=== PATIENT | male | born 1965 | race Caucasian/White ===

== ENCOUNTER 2019-12-13 14:23 | Outpatient (CLI) | payer BC, SELFPAY ==
[2019-12-13 14:38] LABS: Hemoglobin 16.8 g/dL (14.0-18.0); Mean Corpuscular HGB Conc 33.6 g/dL (32.0-36.0); Mean Corpuscular Hemoglobin 29.1 pg (27.0-31.0); Mean Corpuscular Volume 86.7 fL (78.0-102.0); Mean Platelet Volume 10.6 fl (8.7-11.0); Platelet Count Result 223 K/mm3 (150-420); Red Blood Count 5.77 M/mm3 (4.70-6.10); Red Cell Distribution Width 13.1 % (11.6-14.4)
[2019-12-13 14:48] LABS: Hemoglobin A1C 6.1 % (<5.7)
[2019-12-13 15:36] LABS: Alanine Aminotransferase 34 U/L (16-63); Albumin Level 4.1 g/dL (3.4-5.0); Alkaline Phosphatase 82 U/L (46-116); Anion Gap 9 mmol/L (8-16); Aspartate Amino Transferase 24 U/L (15-37); Bilirubin,Total 0.5 mg/dL (0.00-1.00); Blood Urea Nitrogen 18 mg/dL (7-18); Calcium 9.1 mg/dL (8.5-10.1); Carbon Dioxide 29 mmol/L (21-32); Chloride 103 mmol/L (98-108); Cholesterol 221 mg/dL (0-200); Estimated Glomerular Filt Rate > 60; Glucose 81 mg/dL (70-99); HDL Direct 32 mg/dL (40-60); LDL Cholesterol Calculated 136 mg/dL (<130); Osmolality Calculated 292 mOsm/kg (285-295); Potassium 4.3 mmol/L (3.5-5.1); Sodium 141 mmol/L (136-145); Total Protein 7.7 g/dL (6.4-8.2); Triglycerides 266 mg/dL (0-150)
== END 2019-12-13 14:24 | disposition home or self-care (01) ==
LOC: CHSLAB 14:26
PROVIDERS: PCP Family Medicine; Visit Provider Family Medicine
DX: R73.09 Other abnormal glucose (principal); I10 Essential (primary) hypertension
CPT/HCPCS: 36415; 80053; 80061; 83036; 85027

== ENCOUNTER 2020-07-06 18:17 | Emergency (ER) | payer BC, SELFPAY ==
--- NOTE | ~2020-07-06 | XR_ITS ---
XR knee RT 2V DATE: 07/06/2020 18:53 INDICATION: Posterior right knee pain, popping following twisting injury TECHNIQUE: AP and cross table lateral views COMPARISON: None FINDINGS: There is minimal periarticular spurring of the patella. No fracture or dislocation or join t effusion. No periosteal reaction or bone destruction. IMPRESSION: Minimal osteoarthritis Reviewed, dictated and finalized at location A. IMPRESSION: Minimal osteoarthritis
[2020-07-06 18:38] VITALS: BP 131/80; PULSE 81; RESP 16; TEMP 36.8; O2SAT 96
--- NOTE | 2020-07-06 19:10 | ED.LOWEXIN ---
HPI - Extremity Injury (Lower) General Chief Complaint: Extremity Injury, Lower Stated Complaint: R knee pain Source: patient and family Mode of arrival: ambulatory Limitations: no limitations History of Present Illness HPI Narrative: this is a 55-year-old gentleman that hyper extended and twisted his right knee and is having posterior knee pain with no inflammation has been going on for the last 2 weeks he injured it approximately 2 weeks ago in heard a popping sound and since then has had difficulty with weight-bearing has tried [id number] medication there is no swelling has limited range of motion secondary to play pain and inflammation with a good strong pedal pulse no swelling in the anterior knee. complaint: knee injury Onset (ago): week(s) Injury: Right: knee ( posterior tenderness) Type of Injury: eversion Place: home Severity: moderate Severity scale (1-10): 6 Relieving factors: NSAID Exacerbating factors: weight bearing Context: other ( twisted) Associated symptoms: snap/pop sensation and numbness Other symptoms: none Related Data Allergies Allergy/AdvReac Type Severity Reaction Status Date / Time No Known Allergies Allergy Verified 03/13/20 07:32 Review of Systems Review of Systems: All systems reviewed & are unremarkable except as noted in HPI and below PMFSH Past Medical History Medical History Overweight Tobacco smoker, 20 cigarettes or fewer per day Surgical History Surgical History History of carpal tunnel surgery of left wrist Family History Family History Father Diabetes mellitus Skin cancer Mother Fibromyalgia Social History Social History Smoking status: Former smoker Additional smoking assessment comments: Quit 2013. 15 pack-year history Additional living arrangements comments: . 3 Children. Additional occupation/education comments: [employer] Exam Const: General: no acute distress and alert Orientation/consciousness: patient oriented x3 HENMT: Head: normal to inspection Eyes: Conjunctivae: conjunctivae normal Pupils: Equal, round and reactive pupils present EOM: EOMs intact bilaterally Direct Ophthalmoscopy: no photophobia Neck: Neck: normal visual inspection, no lymphadenopathy and no meningeal signs Resp: Effort & Inspection: normal respiratory effort Auscultation: clear to auscultation bilaterally Cardio: Rate: regular rate Rhythm: regular rhythm GI: GI Palp: Yes Soft to palpation Back/Spine/Pelvis: Back: no CVA tenderness Skin: General skin exam: normal color Rashes: no rashes Neuro: General: patient oriented x3, moves all extremities and no meningeal signs Extrem: General: normal to inspection and no pedal edema Other: Has tenderness in posterior right knee with palpation otherwise has limited range of motion secondary to pain, there is no swelling no calf pain or tenderness no redness. Psych: Mental Status: mental status grossly normal Affect: normal affect Course Course Emergency Course: Advised patient that with such injury the will need possibly an MRI and will refer him to his primary care physician for further evaluation. X-ray during this visit was reviewed and showed no acute abnormalities. Vital Signs Vital signs: Vital Signs Temperature 36.8 C 07/06/20 18:38 Pulse Rate 81 07/06/20 18:38 Respiratory Rate 16 07/06/20 18:38 Blood Pressure 131/80 07/06/20 18:38 Pulse Oximetry 96 07/06/20 18:38 Temperature 36.8 C 07/06/20 18:38 Pulse Rate 81 07/06/20 18:38 Respiratory Rate 16 07/06/20 18:38 Blood Pressure 131/80 07/06/20 18:38 Pulse Oximetry 96 07/06/20 18:38 Critical Care Time Critical Care Time Critical Care Time: No Discharge Plan Discharge
== END 2020-07-06 19:20 | disposition home or self-care (01) ==
PROVIDERS: Emergency Provider Emergency Medicine; PCP Family Medicine
DX: S86.911A Strain of unspecified muscle(s) and tendon(s) at lower leg level, right leg, initial encounter (principal); F17.210 Nicotine dependence, cigarettes, uncomplicated
CPT/HCPCS: 73560; 99282; 99283

== ENCOUNTER 2020-07-08 10:11 | Outpatient (CLI) | payer BC, SELFPAY ==
--- NOTE | ~2020-07-08 | MR_ITS ---
EXAMINATION: MR knee RT wo con DATE: 07/08/2020 11:09 INDICATION: Right knee pain post fall down steps one month prior. TECHNIQUE: Magnetic resonance imaging (MRI) of the right knee was performed without intravenous contr ast. Sequences included coronal PD-weighted FSE, coronal PD-weighted FS FSE, sagittal T2-weighted FS E, sagittal PD-weighted FS FSE and axial PD weighted fat saturated FSE. COMPARISON: None. FINDINGS: Medial compartment: Full-thickness radial tear near the posterior root of the medial meniscus. Deep chondral fissure with out degenerative subchondral changes along the lateral margin of the anterior weightbearing medial fe moral condyle. Articular cartilage is otherwise normal. Lateral compartment: Lateral meniscus is normal. Articular cartilage is normal. Patellofemoral compartment: Deep chondral ulceration and fissuring at the cephalad half of the lateral patellar facet, apical rid ge and immediately adjacent medial facet. Small central subchondral osteophytes and small focus of silva barticular edema at the apical ridge and medial facet. Deep chondral fissure at the central aspect of the lateral trochlea. And at the inferolateral aspect of the medial trochlea. Ligaments and tendons: Anterior and posterior cruciate ligaments are normal. The medial collateral ligament and fibular mayi ateral ligament complex are normal. Mild tendinopathy at the medial aspect of the distal quadriceps t endon. Patellar tendon is normal. The visualized medial and lateral hamstring tendons as well as the iliotibial band are normal. Fluid: Small right knee joint effusion. No loose osteochondral bodies identified. Small Montes's cyst with ad ditional small deeper component extending cephalad along the anterior margin of the semimembranosus t endon. Mild prepatellar edema without discrete bursal fluid collection. Osseous/other: Normal marrow signal secondary previous noted is tiny focus of subarticular edema at the patellar api raul ridge. No fracture or pathologic marrow replacing process. IMPRESSION: 1. Full-thickness radial tear near the posterior root of the medial meniscus. 2. 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 3. Signal small deep chondral fissure along the anterior weightbearing medial femoral condyle. 4. Mild distal quadriceps tendinopathy. 5. Small right knee joint effusion and small Montes's cyst. Reviewed, dictated and finalized at location A. IMPRESSION: 1. Full-thickness radial tear near the posterior root of the medial meniscus. 2. 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 3. Signal small deep chondral fissure along the anterior weightbearing medial f emoral condyle. 4. Mild distal quadriceps tendinopathy. 5. Small right knee joint effusion and small Montes's cyst.
== END 2020-07-08 10:12 | disposition home or self-care (01) ==
LOC: CHSIMG 10:13
PROVIDERS: PCP Family Medicine; Visit Provider Family Medicine
DX: S86.911D Strain of unspecified muscle(s) and tendon(s) at lower leg level, right leg, subsequent encounter (principal)
CPT/HCPCS: 73721

== ENCOUNTER 2020-10-30 15:16 | Outpatient (CLI) | payer BC, SELFPAY ==
--- NOTE | ~2020-10-30 | XR_ITS ---
XR chest 2V DATE: 10/30/2020 15:38 INDICATION: Worsening productive cough for one week TECHNIQUE: PA and lateral views COMPARISON: None FINDINGS: There are patchy infiltrates scattered throughout both lungs, particularly in the mid and l ower lung zones, most consistent with bilateral pneumonia. Normal heart size. No pleural effusion or pulmonary vascular congestion or pneumothorax. IMPRESSION: Patchy bilateral pulmonary infiltrates suggestive of pneumonia Reviewed, dictated and finalized at location B.
== END 2020-10-30 15:17 | disposition home or self-care (01) ==
LOC: CHSIMG 15:19
PROVIDERS: PCP Nurse Practitioner Family; Visit Provider Nurse Practitioner Family
DX: R79.81 Abnormal blood-gas level (principal); U07.1 COVID-19
CPT/HCPCS: 71046

== ENCOUNTER 2020-11-03 10:46 | Inpatient (IN) | payer BC, SELFPAY ==
[2020-11-03] VITALS (10 sets, daily range): BP systolic 104–133; BP diastolic 64–89; PULSE 60–87; RESP 12–28; TEMP 35.9–36.3; O2SAT 87–100; BMI 34.7
--- NOTE | ~2020-11-03 | CT_ITS ---
EXAMINATION: CTA chest PE protocol DATE: 11/03/2020 12:52 INDICATION: Shortness of breath. TECHNIQUE: Computed tomography angiography (CTA) of the chest was performed with 100 mL Omnipaque-350 intravenous contrast timed to evaluate the pulmonary arteries. Coronal maximum intensity projection 3D-reconstructions were created by the technologist. Automated exposure control and iterative reconst ruction technique were employed. The dose-length product was 852.02 mGy-cm. COMPARISON: CT abdomen and pelvis 02/22/2017 FINDINGS: There are patchy groundglass and airspace opacities with areas of septal thickening through out the lungs bilaterally. No pleural effusion. There is an 11 mm subcutaneous mass in right superior posterior thorax, likely a sebaceous cyst. The heart size is normal. There are coronary artery calci fications. No pericardial effusion. There is no pulmonary embolus. There is mild mediastinal and bila teral hilar lymphadenopathy. There is a small sliding hiatal hernia. There is mild thoracic spondylos is. IMPRESSION: 1. No pulmonary embolus. Sensitivity is mildly decreased by motion artifact. 2. Diffuse lung disease, consistent with COVID-19 pneumonia. 3. Mild mediastinal and bilateral hilar lymphadenopathy, likely reactive. Reviewed, dictated and finalized at location A.
--- NOTE | ~2020-11-03 | XR_ITS ---
EXAMINATION: XR chest 1V portable INDICATION: Shortness of breath, COVID 19 TECHNIQUE: Portable AP chest at 0951 hours COMPARISON: 11/03/2020 FINDINGS: There are diffuse opacities throughout all lung zones with interval worsening. No pleural e ffusion or pneumothorax is identified. The cardiomediastinal silhouette is normal. IMPRESSION: 1. Diffuse lung disease with interval worsening, consistent with pneumonia and/or pulmonary edema and /or acute respiratory distress syndrome (ARDS). Reviewed, dictated and finalized at location B. IMPRESSION: 1. Diffuse lung disease with interval worsening, consistent with pneumonia and/ or pulmonary edema and/or acute respiratory distress syndrome (ARDS).
--- NOTE | ~2020-11-03 | XR_ITS ---
XR chest 1V portable DATE: 11/03/2020 11:49 INDICATION: Shortness of breath. Covid-positive patient. TECHNIQUE: Portable AP chest on 11/03/2020 at 1159 hours COMPARISON: 10/30/2020 PA and lateral chest FINDINGS: There is increased patchy bilateral mid and lower lung infiltrates since 10/30/2020, likely due to extensive bilateral pneumonia. Heart size appears borderline. No pleural effusion or pneumothorax. IMPRESSION: Increased bilateral infiltrates in the mid and lower lung zones since 10/30 Reviewed, dictated and finalized at location B. IMPRESSION: Increased bilateral infiltrates in the mid and lower lung zones sin 10/30
--- NOTE | 2020-11-03 10:56 | ED.URI ---
HPI - URI/Sore Throat General Chief Complaint: Shortness of Breath/Dyspnea Stated Complaint: SOB/low oxygen Time Seen by Provider: 11/03/20 10:57 Source: patient Mode of arrival: ambulatory Limitations: no limitations History of Present Illness HPI Narrative: Patient comes in with complaints of shortness of breath moderately severe, ongoing for the past two days. He has had difficulty breathing when laying down, for two days. He was recently diagnosed with Covid pneumonia. He complains of feeling lightheaded and presyncopal at home. Nothinghas helped him feel better at home. MD elicited complaint: cough Pertinent past history: pneumonia and other (covid ) Onset (ago): day(s) Consistency: intermittent Severity: moderate Exacerbating factors: exertion Relieving factors: rest Context: sick contacts Associated symptoms: fever, headache and shortness of breath Treatments prior to arrival: acetaminophen Related Data Home Medications Medication Instructions Recorded Confirmed doxycycline monohydrate 100 mg 100 mg PO BID cap 11/01/20 11/03/20 capsule Allergies Allergy/AdvReac Type Severity Reaction Status Date / Time No Known Allergies Allergy Verified 11/01/20 08:24 Review of Systems Constitutional: Constitutional: Reports no additional constitutional complaints Eyes: Eyes: Reports no additional eye complaints ENT: Reports system reviewed and no additional complaints, except as documented Cardiovascular: Cardiovascular: Reports no additional cardiovascular complaints Respiratory: Respiratory: Reports no additional respiratory complaints Gastrointestinal: Gastrointestinal: Reports no additional gastrointestinal complaints Genitourinary: Genitourinary: Reports no additional male genitourinary complaints Musculoskeletal: Musculoskeletal: Reports no additional musculoskeletal complaints Integumentary/Breasts: Skin/Breast: Reports system reviewed and no additional complaints, except as docu Neurologic: Reports system reviewed and no additional complaints, except as documented Psychiatric: Psychiatric: Reports no additional psychiatric complaints Endocrine: Endocrine: Reports no additional endocrine complaints Hematologic/Lymphatic: Hematologic/Lymphatic: Reports no additional hematologic/lymphatic complaints Allergic/Immunologic: Allergic/Immunologic: Reports no additional allergic/immunologic complaints PMFSH Past Medical History Medical History Acute medial meniscus tear of right knee Benign essential hypertension Obesity (BMI 30.0-34.9) Posterior tibial tendon dysfunction (PTTD) of right lower extremity Tobacco smoker, 20 cigarettes or fewer per day Surgical History Surgical History History of carpal tunnel surgery of left wrist Family History Family History Father Diabetes mellitus Skin cancer Mother Fibromyalgia Other Arthritis Social History Social History Smoking packs per day: 0.5 Smoking cigarettes per day: 10.0 Smoking status: Former smoker Tobacco type: cigarettes Second hand tobacco smoke exposure: No Additional smoking assessment comments: Quit 2012. 15 pack-year history Alcohol intake: current Alcohol use details: 2 per month Substance use: unknown Substance use type: does not use Additional living arrangements comments: . 3 Children. Additional occupation/education comments: [employer] Gender identity (if verbalized by the patient): Male Sexual Orientation (if Verbalized by the Patient): Straight or Heterosexual Spiritual care concerns: No Exam Const: General: no acute distress and alert Orientation/consciousness: patient oriented x3 HENMT: Head: normal to inspection Ears: external ears normal and TM's n
--- NOTE | 2020-11-03 11:21 | ECG_ITS ---
Measurements Intervals [place] Rate: 74 P: 28 ND: 139 QRS: 4 QRSD: 101 T: -12 QT: 366 QTc: 408 Interpretive Statements SINUS RHYTHM VOLTAGE CRITERIA FOR LVH INFERIOR INFARCT, AGE INDETERMINATE BASELINE WANDER- AVR, AVF ABNORMAL ECG Electronically Signed On 11-03-2020 12:43:47 CDT by Jacinto Zepeda D.O.
[2020-11-03 11:49] LABS: Base Excess ABG 4.4 mmol/L (0-2); PCO2 ABG 48.2 mmHg (35-45); PO2 ABG 51.7 mmHg (80-90); pH ABG 7.41 (7.35-7.45)
[2020-11-03 11:51] LABS: Basophils Absolute Auto 0.02 K/mm3 (0.00-0.10); Basophils Percent Auto 0.2 % (0.0-1.0); Hematocrit 40.9 % (40.0-54.0); Hemoglobin 13.4 g/dL (14.0-18.0); Immature Granulocyte Absolute 0.18 K/mm3 (0.00-0.00); Immature Granulocyte Percent A 1.4 % (0.0-0.0); Lymphocytes Absolute Auto 0.64 K/mm3 (1.10-4.50); Lymphocytes Percent Auto 4.8 % (18.0-42.0); Mean Corpuscular HGB Conc 32.8 g/dL (32.0-36.0); Mean Corpuscular Hemoglobin 28.5 pg (27.0-31.0); Mean Platelet Volume 10.1 fl (8.7-11.0); Monocytes Absolute Auto 1.13 K/mm3 (0.10-0.90); Monocytes Percent Auto 8.5 % (2.0-11.0); Neutrophils Absolute Auto 11.3 K/mm3 (1.7-7.2); Neutrophils Percent Auto 85.1 % (50.0-70.0); Platelet Count Result 324 K/mm3 (150-420); Red Cell Distribution Width 13.4 % (11.6-14.4); White Blood Count 13.2 K/mm3 (4.8-10.8)
[2020-11-03 11:52] LABS: Device NASAL CANNULA; Modified Allen's Test Pass; Oxygen Saturation ABG 86.7 % (95-97); Site Drawn RIGHT RADIAL
[2020-11-03 12:11] LABS: D Dimer 0.58 mg/L (0.19-0.50)
[2020-11-03 12:14] LABS: Influenza Control Valid (Valid)
[2020-11-03 12:15] LABS: Alanine Aminotransferase 69 U/L (16-63); Albumin Level 2.9 g/dL (3.4-5.0); Alkaline Phosphatase 50 U/L (46-116); Anion Gap 9 mmol/L (8-16); Aspartate Amino Transferase 43 U/L (15-37); Bilirubin,Total 0.9 mg/dL (0.00-1.00); Blood Urea Nitrogen 53 mg/dL (7-18); Calcium 8.8 mg/dL (8.5-10.1); Carbon Dioxide 29 mmol/L (21-32); Chloride 100 mmol/L (98-108); Estimated CRCL calculation 71 ml/min; Estimated Glomerular Filt Rate 51; Glucose 129 mg/dL (70-99); Osmolality Calculated 302 mOsm/kg (285-295); Potassium 4.3 mmol/L (3.5-5.1); Sodium 138 mmol/L (136-145); Total Protein 7.4 g/dL (6.4-8.2)
[2020-11-03 12:15] LABS: Magnesium 2.4 mg/dL (1.8-2.4); NT Pro B Type Natriuretic Pept 30 pg/mL (0-125); Troponin I < 4.0 ng/L (0.00-60.4)
[2020-11-03] MEDS: DEXAMETHASONE SOD PHOS INJ 4 MG/ML VIAL 10 MG IV PUSH (13:00)
[2020-11-03] MEDS: SODIUM CHLORIDE 0.9% IV 1,000 ML 500 ML IV CONT (13:00)
[2020-11-03 14:16] LABS: Prothrombin Time 10.9 Seconds (9.50-12.10)
--- NOTE | 2020-11-03 14:30 | PC.NURSE ---
Patient admitted to Rm 210 from ER as an inpatient due to Covid positive w/pneumonia. Patient is oriented to room and made comfortable.
[2020-11-03] MEDS: REMDESIVIR 200 MG/NS 250 ML 200 MG/250 ML BAG 250 MG IVPB (14:45)
[2020-11-03] MEDS: ENOXAPARIN 40 MG/0.4 ML SYRINGE SUB-Q (16:06)
[2020-11-03] MEDS: BUDESONIDE/FORMOTEROL (*SP) 160-4.5 MCG 6 GM INH 2 PUFF INHALATION (19:33)
[2020-11-04] VITALS (12 sets, daily range): BP systolic 107–120; BP diastolic 52–75; PULSE 55–105; RESP 14–20; TEMP 35.9–36.9; O2SAT 75–98
[2020-11-04] MEDS: BUDESONIDE/FORMOTEROL (*SP) 160-4.5 MCG 6 GM INH 2 PUFF INHALATION ×2 (06:07→08:33)
[2020-11-04 06:16] LABS: Base Excess ABG -1.2 mmol/L (0-2); HCO3 ABG 23.4 mmol/L (23-29); PO2 ABG 60.6 mmHg (80-90)
[2020-11-04 06:17] LABS: Device NASAL CANNULA; Modified Allen's Test Pass; Oxygen Saturation ABG 91.3 % (95-97); Site Drawn LEFT RADIAL
[2020-11-04 06:18] LABS: Hematocrit 38.1 % (40.0-54.0); Hemoglobin 12.6 g/dL (14.0-18.0); Mean Corpuscular HGB Conc 33.1 g/dL (32.0-36.0); Mean Corpuscular Hemoglobin 29.1 pg (27.0-31.0); Mean Platelet Volume 10.2 fl (8.7-11.0); Platelet Count Result 340 K/mm3 (150-420); Red Blood Count 4.33 M/mm3 (4.70-6.10); Red Cell Distribution Width 13.2 % (11.6-14.4); White Blood Count 10.6 K/mm3 (4.8-10.8)
[2020-11-04 06:35] LABS: Alanine Aminotransferase 72 U/L (16-63); Albumin Level 2.6 g/dL (3.4-5.0); Alkaline Phosphatase 49 U/L (46-116); Anion Gap 10 mmol/L (8-16); Aspartate Amino Transferase 37 U/L (15-37); Bilirubin,Total 0.6 mg/dL (0.00-1.00); Blood Urea Nitrogen 48 mg/dL (7-18); Calcium 8.3 mg/dL (8.5-10.1); Carbon Dioxide 28 mmol/L (21-32); Chloride 101 mmol/L (98-108); Estimated CRCL calculation 81 ml/min; Estimated Glomerular Filt Rate 60; Glucose 138 mg/dL (70-99); Magnesium 2.4 mg/dL (1.8-2.4); Osmolality Calculated 302 mOsm/kg (285-295); Potassium 4.2 mmol/L (3.5-5.1); Sodium 139 mmol/L (136-145); Total Protein 6.7 g/dL (6.4-8.2)
--- NOTE | 2020-11-04 07:33 | PM.IMHP ---
H&P: HPI History of Present Illness Date/Time: 11/04/20 07:33 this is a 55-year-old male that presented to the emergency department with complaints of shortness of breath, productive cough and fatigue. Patient has a past medical history of meniscus tear of the right knee, essential hypertension, obesity, TTD of the right lower extremity, nicotine dependence. According to patient on approximately October 18 patient started to experience body pains,aches, productive cough that is pink to dark brown in color and fatigue. Patient describes the symptoms as flulike. He notes that one of his coworkers informed him that he had tested positive for Covid shortly after his as well as his son and his son's girlfriend became ill. He notes that his went and to get a Covid test tested positive on October 30 he decided to go get a Covid test which was positive. He notes shortly afterwards he became more fatigued and his shortness of breath worsened. Patient did not take the Covid vaccination. On admission patient vital signs 96.7, 80, 20, 93%, 104/64,, WBCs 13.2, hemoglobin 13.4, hematocrit 40.9, platelets 324, D-dimer 0.58, pH 7.41, CO2 48.2, PO2 51.7, bicarb 30, sodium 138, potassium 4.3, BUN 53, creatinine 1.44, glucose 129, lactic acid 1.0, magnesium 2.7, AST 43, ALT 69, troponin within normal limits, BUN 30, Covid positive, chest x-ray indicate pneumonia ,CTA no PE indicates Covid pneumonia. Patient notes that he still continues to feel fatigue and shortness of breath. The patient denies CP, palpitation, extremity numbness, lightheadedness, dizziness, constipation, diarrhea, chills, or fever. <JOSH Guerrero - Last Filed: 11/04/20 08:30> Chief Complaint: Shortness of breath, fatigue, productive cough <JOSH Guerrero - Last Filed: 11/04/20 08:30> Review of Systems Review of Systems: Narrative: A 14 organ system Review of Systems was performed and pertinent positives included in the HPI, otherwise remaining ROS is negative. <JOSH Guerrero - Last Filed: 11/04/20 08:30> All systems reviewed & are unremarkable except as noted in HPI and below <JOSH Guerrero - Last Filed: 11/04/20 08:30> [facility] Past Medical History Medical History: Medical History Acute medial meniscus tear of right knee Benign essential hypertension Obesity (BMI 30.0-34.9) Posterior tibial tendon dysfunction (PTTD) of right lower extremity Tobacco smoker, 20 cigarettes or fewer per day <JOSH Guerrero - Last Filed: 11/04/20 08:30> Surgical History Surgical History: Surgical History History of carpal tunnel surgery of left wrist <JOSH Guerrero - Last Filed: 11/04/20 08:30> Family History Family History: Family History Father Diabetes mellitus Skin cancer Mother Fibromyalgia Other Arthritis <JOSH Guerrero - Last Filed: 11/04/20 08:30> Social History Social History: Social History Smoking packs per day: 0.5 Smoking cigarettes per day: 10.0 Smoking status: Former smoker Tobacco type: cigarettes Second hand tobacco smoke exposure: No Additional smoking assessment comments: Quit 2013. 15 pack-year history Alcohol intake: current Alcohol use details: 2 per month Substance use: unknown Substance use type: does not use Additional living arrangements comments: . 3 Children. Additional occupation/education comments: [employer] Gender identity (if verbalized by the patient): Male Sexual Orientation (if Verbalized by the Patient): Straight or Heterosexual Spiritual care concerns: No <JOSH Guerrero - Last Filed: 11/04/20 08:30> Meds Home Medications and Allergies Home medications: Home Medications Medic
[2020-11-04] MEDS: DEXAMETHASONE 2 MG TABLET 6 MG PO (08:32)
[2020-11-04] MEDS: guaiFENesin 12 HR 600 MG TABCR 1200 MG PO ×2 (09:30→20:50)
[2020-11-04] MEDS: hydroCHLOROthiazide 25 MG TABLET PO (09:32)
[2020-11-04] MEDS: BENZONATATE 100 MG CAPSULE 200 MG PO ×3 (09:32→17:57)
[2020-11-04] MEDS: lisinopriL 20 MG TABLET PO (09:32)
[2020-11-04] MEDS: REMDESIVIR 100 MG/NS 250 ML 100 MG/250 ML BAG 250 MG IVPB (14:19)
[2020-11-05] VITALS (12 sets, daily range): BP systolic 108–115; BP diastolic 62–74; PULSE 56–77; RESP 16–20; TEMP 36.1–36.5; O2SAT 80–98
[2020-11-05 05:17] LABS: Hematocrit 38.1 % (40.0-54.0); Hemoglobin 12.5 g/dL (14.0-18.0); Mean Corpuscular HGB Conc 32.8 g/dL (32.0-36.0); Mean Corpuscular Hemoglobin 28.6 pg (27.0-31.0); Mean Corpuscular Volume 87.2 fL (78.0-102.0); Mean Platelet Volume 10.2 fl (8.7-11.0); Platelet Count Result 335 K/mm3 (150-420); Red Blood Count 4.37 M/mm3 (4.70-6.10); Red Cell Distribution Width 13.2 % (11.6-14.4); White Blood Count 10.3 K/mm3 (4.8-10.8)
[2020-11-05] MEDS: BUDESONIDE/FORMOTEROL (*SP) 160-4.5 MCG 6 GM INH 2 PUFF INHALATION ×2 (05:38→18:30)
[2020-11-05 05:49] LABS: Alanine Aminotransferase 64 U/L (16-63); Albumin Level 2.6 g/dL (3.4-5.0); Alkaline Phosphatase 48 U/L (46-116); Anion Gap 9 mmol/L (8-16); Aspartate Amino Transferase 27 U/L (15-37); Bilirubin,Total 0.6 mg/dL (0.00-1.00); Blood Urea Nitrogen 37 mg/dL (7-18); Calcium 8.4 mg/dL (8.5-10.1); Carbon Dioxide 26 mmol/L (21-32); Chloride 102 mmol/L (98-108); Estimated CRCL calculation 91 ml/min; Estimated Glomerular Filt Rate > 60; Glucose 117 mg/dL (70-99); Osmolality Calculated 293 mOsm/kg (285-295); Potassium 4.5 mmol/L (3.5-5.1); Sodium 137 mmol/L (136-145); Total Protein 6.5 g/dL (6.4-8.2)
--- NOTE | 2020-11-05 09:27 | WPDPN ---
Progress Note: A&P Assessment and Plan (1) COVID-19: Code(s): U07.1 - COVID-19 Status: Acute Assessment and Plan: Patient tested positive on 10/30/2020 started having signs and symptoms on 10/27/2020 CTA indicates Covid pneumonia Continue dexamethasone, remdesivir, Rocephin and Bactrim Continue supplementary oxygen patient on high flow 50 L, will slowly titrate down Continue breathing treatment with inhalers Lactic acid within normal limits WBCs13.2>10.6> within normal limits (2) Benign essential hypertension: Code(s): I10 - Essential (primary) hypertension Status: Acute Assessment and Plan: Stable Continue lisinopril 20 mg daily and hydrochlorothiazide 25 mg daily Vital signs as ordered Will adjust medication as needed (3) Obesity (BMI 30.0-34.9): Code(s): E66.9 - Obesity, unspecified Status: Acute Assessment and Plan: Educated on healthy lifestyle (4) Acute kidney injury: Code(s): N17.9 - Acute kidney failure, unspecified Status: Acute Assessment and Plan: Resolved Possibly secondary to infection On admission creatinine1.44>1.25> within normal limits GFR51>60 We will continue to monitor CMP in a.m. (5) Elevated d-dimer: Code(s): R79.89 - Other specified abnormal findings of blood chemistry Status: Acute Assessment and Plan: D-dimer 0.58 CTA does not indicate pulmonary embolism (6) Elevated liver enzymes: Code(s): R74.8 - Abnormal levels of other serum enzymes Status: Acute Assessment and Plan: Possibly secondary to infection AST43>37, ALT69>72 >64will trend CMP in a.m. Subjective Date/time seen: 11/05/20 09:27 patient is currently on 5 L nasal cannula with sats in the lower 90s. Does not appear to be in any obvious distress. Patient is anxious to go home plan will complete a home o2 eval tomorrow morning with possible discharge. Received report that yesterday while patient ambulated to the restroom his sats dropped in the mid 80s the. patient denies CP, palpitation, extremity numbness, lightheadedness, dizziness, constipation, diarrhea, chills, or fever. Review of Systems Review of Systems: Narrative: A 14 organ system Review of Systems was performed and pertinent positives included in the HPI, otherwise remaining ROS is negative. All systems reviewed & are unremarkable except as noted in HPI and below Exam Narrative: Exam Narrative: GENERAL: This is a well-nourished, well-developed patient, in no apparent distress. HEAD: normocephalic, atraumatic. EYES: PERRL. Sclera clear/white. Vision is grossly intact. EARS: External ears normal, auditory canals clear and without drainage, TMs normal without perforation. Hearing grossly intact. NOSE: External nose normal with no obvious nasal discharge, nares without redness, no rhinorrhea. THROAT: Mucous membranes moist, posterior pharynx clear. NECK: Neck supple, non-tender without lymphadenopathy, masses or thyromegaly. CARDIOVASCULAR: Regular rate and rhythm without murmurs, gallops, or rubs. RESPIRATORY: Clear to auscultation. Breath sounds equal bilaterally. No wheezes, rales, or rhonchi. GASTROINTESTINAL: Abdomen soft, non-tender, nondistended. Bowel sounds are active. No hepato-splenomegaly, or palpable masses. No guarding. SKIN: warm, intact with no suspicious lesions or rash, good texture and turgor. NEURO: awake, alert, and oriented to person, place and time. There were no obvious focal neurologic abnormalities. Steady gait EXTREMITIES: Normal range of motion. No edema. No calf tenderness. Negative Homans sign bilaterally. BACK: Nontender without deformity or crepitance. No flank tenderness. Objective Data Vital Signs Vital Signs: Vital Signs - 24 hr 11/04/20 11:49 11/04/20 14:00 11/04/20 15:40 Temperature 98.4 F 97.6 F Pulse Rate 64 77 82 Respiratory Rate 14 20 Blood Pressure 120/52 L 110/60 Pulse Oximetry 93 95
[2020-11-05] MEDS: DEXAMETHASONE 2 MG TABLET 6 MG PO (09:29)
[2020-11-05] MEDS: hydroCHLOROthiazide 25 MG TABLET PO (09:29)
[2020-11-05] MEDS: guaiFENesin 12 HR 600 MG TABCR 1200 MG PO ×2 (09:30→20:14)
[2020-11-05] MEDS: lisinopriL 20 MG TABLET PO (09:30)
[2020-11-05] MEDS: BENZONATATE 100 MG CAPSULE 200 MG PO ×3 (09:30→17:00)
[2020-11-05] MEDS: REMDESIVIR 100 MG/NS 250 ML 100 MG/250 ML BAG 250 MG IVPB (14:06)
[2020-11-06] VITALS (8 sets, daily range): BP systolic 103–120; BP diastolic 59–73; PULSE 64–102; RESP 18; TEMP 36.1–36.6; O2SAT 82–95
[2020-11-06] MEDS: BUDESONIDE/FORMOTEROL (*SP) 160-4.5 MCG 6 GM INH 2 PUFF INHALATION (05:45)
[2020-11-06 05:46] LABS: Alanine Aminotransferase 55 U/L (16-63); Albumin Level 2.8 g/dL (3.4-5.0); Alkaline Phosphatase 49 U/L (46-116); Anion Gap 8 mmol/L (8-16); Aspartate Amino Transferase 21 U/L (15-37); Bilirubin,Total 0.7 mg/dL (0.00-1.00); Blood Urea Nitrogen 32 mg/dL (7-18); Calcium 8.7 mg/dL (8.5-10.1); Carbon Dioxide 28 mmol/L (21-32); Chloride 101 mmol/L (98-108); Estimated CRCL calculation 84 ml/min; Estimated Glomerular Filt Rate > 60; Glucose 91 mg/dL (70-99); Osmolality Calculated 290 mOsm/kg (285-295); Potassium 4.5 mmol/L (3.5-5.1); Sodium 137 mmol/L (136-145); Total Protein 6.9 g/dL (6.4-8.2)
--- NOTE | 2020-11-06 08:13 | PM.DS ---
DS: Admitting Diagnosis Admitting Diagnosis Admitting Diagnosis: covid DS: Discharge Diagnosis Discharge Diagnosis (1) COVID-19: Code(s): U07.1 - COVID-19 Status: Acute Assessment and Plan: Patient tested positive on 10/30/2020 started having signs and symptoms on 10/27/2020 CTA indicates Covid pneumonia Continue dexamethasone, remdesivir, cefdinir and Bactrim Will discharge home with Symbicort and rescue inhaler Lactic acid within normal limits WBCs13.2>10.6> within normal limits Patient requiring 4 L nasal cannula at rest and 6 to 8 L with ambulation (2) Benign essential hypertension: Code(s): I10 - Essential (primary) hypertension Status: Acute Assessment and Plan: Stable Continue lisinopril 20 mg daily and hydrochlorothiazide 25 mg daily (3) Obesity (BMI 30.0-34.9): Code(s): E66.9 - Obesity, unspecified Status: Acute Assessment and Plan: Educated on healthy lifestyle (4) Acute kidney injury: Code(s): N17.9 - Acute kidney failure, unspecified Status: Acute Assessment and Plan: Resolved Possibly secondary to infection On admission creatinine1.44>1.25> within normal limits GFR51>60 (5) Elevated d-dimer: Code(s): R79.89 - Other specified abnormal findings of blood chemistry Status: Acute Assessment and Plan: D-dimer 0.58 CTA does not indicate pulmonary embolism (6) Elevated liver enzymes: Code(s): R74.8 - Abnormal levels of other serum enzymes Status: Acute Assessment and Plan: Possibly secondary to infection AST43>37, ALT69>72 >64> within normal limits DS: Summary Hospital Course Reason for hospitalization: covid pna Hospital Course: this is a 55-year-old male that presented to the emergency department with complaints of shortness of breath, productive cough and fatigue. Patient has a past medical history of meniscus tear of the right knee, essential hypertension, obesity, TTD of the right lower extremity, nicotine dependence. According to patient on approximately October 18 patient started to experience body pains,aches, productive cough that is pink to dark brown in color and fatigue. Patient describes the symptoms as flulike. He notes that one of his coworkers informed him that he had tested positive for Covid shortly after his as well as his son and his son's girlfriend became ill. He notes that his went and to get a Covid test tested positive on October 30 he decided to go get a Covid test which was positive. He notes shortly afterwards he became more fatigued and his shortness of breath worsened. Patient did not take the Covid vaccination. Patient was treated with remdesivir and dexamethasone as well as antibiotics as inpatient. Patient is stable and agrees that he is ready for discharge she will need to follow-up with his primary care physician he did receive a home O2 evaluation this admission. It indicates that he needs 4 L at rest and 6 to 8 L with activities. Patient will discharge home with oxygen he will return back to work once his primary care physician releases him. Also advised to take the Covid vaccine once his primary care physician okays it. The patient denies SOB, CP, palpitation, extremity numbness, lightheadedness, dizziness, constipation, diarrhea, chills, or fever. Inpatient Time spent 60 minutes Time Spent with Patient Time attestation: Total time spent providing and/or coordinating discharge services: 60 minutes Exam Narrative: Exam Narrative: GENERAL: This is a well-nourished, well-developed patient, in no apparent distress. HEAD: normocephalic, atraumatic. EYES: PERRL. Sclera clear/white. Vision is grossly intact. EARS: External ears normal, auditory canals clear and without drainage, TMs normal without perforation. Hearing grossly intact. NOSE: External nose normal with no obvious nasal discharge, nares without redness, no rhinorrhea. THROAT
[2020-11-06] MEDS: DEXAMETHASONE 2 MG TABLET 6 MG PO (09:02)
[2020-11-06] MEDS: hydroCHLOROthiazide 25 MG TABLET PO (09:03)
[2020-11-06] MEDS: guaiFENesin 12 HR 600 MG TABCR 1200 MG PO (09:03)
[2020-11-06] MEDS: BENZONATATE 100 MG CAPSULE 200 MG PO ×3 (09:04→16:56)
[2020-11-06] MEDS: lisinopriL 20 MG TABLET PO (09:04)
[2020-11-06 09:15] LABS: Base Excess ABG 2.1 mmol/L (0-2); PCO2 ABG 38.4 mmHg (35-45); pH ABG 7.45 (7.35-7.45)
[2020-11-06 09:16] LABS: Device NASAL CANNULA; Modified Allen's Test Pass; Oxygen Saturation ABG 93.7 % (95-97); Site Drawn RIGHT RADIAL
--- NOTE | 2020-11-06 10:08 | HOMEO2EVAL ---
Evaluation was performed at [facility] Home Oxygen Evaluation RC: Home Oxygen (O2) Evaluation Start: 11/06/20 07:38 Freq: ONCE Status: Active Protocol: RPE Activity Type Activity Date Activity User E-Sign Co-Sign Detail Recorded Client Recorded Date Recorded By Document 11/06/20 08:15 SJAbdulkadir [id number] 11/06/20 10:08 SJB Document 11/06/20 08:19 SJB [id number] 11/06/20 10:08 SJB Document 11/06/20 08:25 SJB [id number] 11/06/20 10:08 SJB 11/06/20 11/06/20 11/06/20 08:15 08:19 08:25 Home O2 Evaluation Test Phase Resting Exercise Exercise Oxygen Delivery Room Air Room Air Nasal Cannula Oxygen Flow Rate (L/min) 6 Pulse Oximetry (90-100 %) 89 L 82 L 82 L Pulse Rate (60-100 beats/min) 91 102 H 84 Activity Tolerance Good Fair Rating of Perceived Dyspnea (PD) +1 Mild, +1 Mild, +3 Moderate Noticeable to Noticeable to Difficulty, But the Participant the Participant Can Continue but Not to an but Not to an Observer Observer Rate of Perceived Exertion (PE) 9 Very light 11 Fairly light 13 Somewhat Hard Ambulation Distance (feet) 90 220 Home Oxygen Evaluation Comments Pt c/o being Had patient sit light headed and increased and a non prod 02 to 8 lpm to cough. 02 was increase Sp02. placed at 6 lpm After 1 minute . rest, pts Sp02 increased to 97% with PLB. Oxygen was then turned down to 4 lpm at rest and patient maintained an Sp02 of 93% with HR 80. Treatment Charges O2 Evaluation - Inpatient
--- NOTE | 2020-11-06 11:05 | P.PN_ITS ---
Progress Note: A&P Assessment and Plan (1) COVID-19: Code(s): U07.1 - COVID-19 <Soto Siddiqui MANOLO-C - Last Filed: 11/06/20 11:10> Status: Acute <Soto Siddiqui BRADYC - Last Filed: 11/06/20 11:10> Assessment and Plan: * Patient tested positive on 10/30/2020 started having signs and symptoms on 10/27/2020 * CTA indicates Covid pneumonia * Continue dexamethasone, remdesivir, and start Rocephin in azithromycin * Continue nebulizer * Lactic acid within normal limits * WBCs13.2>10.6> within normal limits * Patient requiring 4 L nasal cannula at rest and 6 to 8 L with ambulation patient would need a new home O2 evaluation on discharge * No chest x-ray indicates worsening pneumonia versus pulmonary edema versus ARDS <Soto Siddiqui MANOLO-C - Last Filed: 11/06/20 11:10> (2) Benign essential hypertension: Code(s): I10 - Essential (primary) hypertension <Soto Siddiqui MANOLO-C - Last Filed: 11/06/20 11:10> Status: Acute <Soto Siddiqui MANOLO-C - Last Filed: 11/06/20 11:10> Assessment and Plan: * Stable * Continue lisinopril 20 mg daily and hydrochlorothiazide 25 mg daily <Soto Siddiqui MANOLO-C - Last Filed: 11/06/20 11:10> (3) Obesity (BMI 30.0-34.9): Code(s): E66.9 - Obesity, unspecified <Soto Siddiqui MANOLO-C - Last Filed: 11/06/20 11:10> Status: Acute <Soto Siddiqui MANOLO-C - Last Filed: 11/06/20 11:10> Assessment and Plan: * Educated on healthy lifestyle <Soto Siddiqui MANOLO-C - Last Filed: 11/06/20 11:10> (4) Acute kidney injury: Code(s): N17.9 - Acute kidney failure, unspecified <Soto Siddiqui MANOLO-C - Last Filed: 11/06/20 11:10> Status: Acute <JOSH Guerrero - Last Filed: 11/06/20 11:10> Assessment and Plan: * Resolved * Possibly secondary to infection * On admission creatinine1.44>1.25> within normal limits * GFR51>60 <JOSH Guerrero - Last Filed: 11/06/20 11:10> (5) Elevated d-dimer: Code(s): R79.89 - Other specified abnormal findings of blood chemistry <JOSH Guerrero - Last Filed: 11/06/20 11:10> Status: Acute <JOSH Guerrero - Last Filed: 11/06/20 11:10> Assessment and Plan: * D-dimer 0.58 * CTA does not indicate pulmonary embolism <JOSH Guerrero - Last Filed: 11/06/20 11:10> (6) Elevated liver enzymes: Code(s): R74.8 - Abnormal levels of other serum enzymes <JOSH Guerrero - Last Filed: 11/06/20 11:10> Status: Acute <JOSH Guerrero - Last Filed: 11/06/20 11:10> Assessment and Plan: * Possibly secondary to infection * AST43>37, ALT69>72 >64> within normal limits * <JOSH Guerrero - Last Filed: 11/06/20 11:10> Subjective Date/time seen: 11/06/20 11:05 was originally planning to discharge patient home today due to his chest x-ray he will stay for a couple days to complete his complete treatment of remdesivir and a couple more days of antibiotics. Patient was anxious to discharge home but has agreed to remain to get his complete treatment. The patient denies SOB, CP, palpitation, extremity numbness, lightheadedness, dizziness, constipation, diarrhea, chills, or fever. <JOSH Guerrero - Last Filed: 11/06/20 11:10> Review of Systems Review of Systems: Narrative: A 14 organ system Review of Systems was performed and pertinent positives included in the HPI, otherwise remaining ROS is negative. <JOSH Guerrero - Last Filed: 11/06/20 11:10> A
--- NOTE | 2020-11-06 11:05 | WPDPN ---
Progress Note: A&P Assessment and Plan (1) COVID-19: Code(s): U07.1 - COVID-19 <Soto Collins JOSH Siddiqui - Last Filed: 11/06/20 11:10> Status: Acute <Soto SiddiquiJOSH - Last Filed: 11/06/20 11:10> Assessment and Plan: Patient tested positive on 10/30/2020 started having signs and symptoms on 10/27/2020 CTA indicates Covid pneumonia Continue dexamethasone, remdesivir, and start Rocephin in azithromycin Continue nebulizer Lactic acid within normal limits WBCs13.2>10.6> within normal limits Patient requiring 4 L nasal cannula at rest and 6 to 8 L with ambulation patient would need a new home O2 evaluation on discharge No chest x-ray indicates worsening pneumonia versus pulmonary edema versus ARDS <JOSH Guerrero - Last Filed: 11/06/20 11:10> (2) Benign essential hypertension: Code(s): I10 - Essential (primary) hypertension <Soto TigistBRADY BalesC - Last Filed: 11/06/20 11:10> Status: Acute <Soto Collins BRADY SiddiquiC - Last Filed: 11/06/20 11:10> Assessment and Plan: Stable Continue lisinopril 20 mg daily and hydrochlorothiazide 25 mg daily <BRADY GuerreroC - Last Filed: 11/06/20 11:10> (3) Obesity (BMI 30.0-34.9): Code(s): E66.9 - Obesity, unspecified <Soto TigistBRADY BalesC - Last Filed: 11/06/20 11:10> Status: Acute <Soto TigistBRADY BalesC - Last Filed: 11/06/20 11:10> Assessment and Plan: Educated on healthy lifestyle <JOSH Guerrero - Last Filed: 11/06/20 11:10> (4) Acute kidney injury: Code(s): N17.9 - Acute kidney failure, unspecified <JOSH Guerrero - Last Filed: 11/06/20 11:10> Status: Acute <JOSH Guerrero - Last Filed: 11/06/20 11:10> Assessment and Plan: Resolved Possibly secondary to infection On admission creatinine1.44>1.25> within normal limits GFR51>60 <JOSH Guerrero - Last Filed: 11/06/20 11:10> (5) Elevated d-dimer: Code(s): R79.89 - Other specified abnormal findings of blood chemistry <JOSH Guerrero - Last Filed: 11/06/20 11:10> Status: Acute <JOSH Guerrero Last Filed: 11/06/20 11:10> Assessment and Plan: D-dimer 0.58 CTA does not indicate pulmonary embolism <JOSH Guerrero - Last Filed: 11/06/20 11:10> (6) Elevated liver enzymes: Code(s): R74.8 - Abnormal levels of other serum enzymes <JOSH Guerrero - Last Filed: 11/06/20 11:10> Status: Acute <JOSH Guerrero Last Filed: 11/06/20 11:10> Assessment and Plan: Possibly secondary to infection AST43>37, ALT69>72 >64> within normal limits <JOSH Guerrero - Last Filed: 11/06/20 11:10> Subjective Date/time seen: 11/06/20 11:05 was originally planning to discharge patient home today due to his chest x-ray he will stay for a couple days to complete his complete treatment of remdesivir and a couple more days of antibiotics. Patient was anxious to discharge home but has agreed to remain to get his complete treatment. The patient denies SOB, CP, palpitation, extremity numbness, lightheadedness, dizziness, constipation, diarrhea, chills, or fever. <JOSH Guerrero - Last Filed: 11/06/20 11:10> Review of Systems Review of Systems: Narrative: A 14 organ system Review of Systems was performed and pertinent positives included in the HPI, otherwise remaining ROS is negative. <JOSH Guerrero - Last Filed: 11/06/20 11:10> All systems reviewed & are unremarkable except as noted in HPI and below <Soto Siddiqui, STACKING MACHINE OPERATOR-C - Last Filed: 11/06/20 11:10> Exam Narrative: Exam Narrative: Exam Narrative: GENERAL: This is a well-nourished, well-developed patient, in no apparent distress. HEAD: normocephalic, atraumatic. EYES: PERRL. Sclera clear/white. Vision is grossly intact. EARS: Roto Gravure Press Operator
--- NOTE | 2020-11-06 17:29 | PC.NURSE ---
1655 [facility] notified of need for transfer to [facility]. [facility] did not have ALS rig available.
--- NOTE | 2020-11-06 17:30 | PC.NURSE ---
Patient being discharged and transferred to [facility] via EMS transport. Report called to Kamille bae at [place]. Family is aware of transfer.
--- OUTSIDE RECORDS SUMMARY | 2020-11-07 09:42 | XMS_ITS | Continuity of Care Document ---
:1965 Author [facility] Address [address] [place] [address] Phone Support Name Relationship Address Phone MD Dennis Masters Attending Provider [address] [phone] [place] [address] DO Devorah Pagan Referring Provider [address] [place] [address] MICHI Perez SJonah Attending Provider [address] [place] [address] MD Jani Branch Admit Provider [address] [place] [address] Chief Complaint and Reason for Visit Chief Complaint Knee injury Possible covid covid U07.1 Sick visit (adolescent/adult ) COVID Reason for Visit Acute medial meniscus tear o f right knee Posterior tibial tendon dysf unction (PTTD) of right lower extremity COVID-19 Low O2 saturation COVID-19 Low O2 saturation Acute kidney injury Benign essential hypertensio n COVID-19 Elevated d-dimer Elevated liver enzymes Low O2 saturation Obesity (BMI 30.0-34.9) Allergies, Adverse Reactions, Alerts No known allergies Social History Smoking Status Status Start Date End Date Date of Observat ion Ex-smoker (finding) November 03 3:12pm
== END 2020-11-06 17:30 | disposition short-term general hospital (02) | DRG 177 ==
LOC: CHSED 13:25 → CHS2ND 14:15
PROVIDERS: Admitting Provider Emergency Medicine; Emergency Provider Emergency Medicine; PCP Family Medicine; Visit Provider Nurse Practitioner
DX: U07.1 COVID-19 (principal); J12.82 Pneumonia due to coronavirus disease 2019; N17.9 Acute kidney failure, unspecified; I10 Essential (primary) hypertension; E66.9 Obesity, unspecified; R79.89 Other specified abnormal findings of blood chemistry; R74.8 Abnormal levels of other serum enzymes; Z87.891 Personal history of nicotine dependence
CPT/HCPCS: 36415; 36600; 71045; 71275; 80053; 82805; 83605; 83735; 83880; 84484; 85025; 85027; 85380; 85610; 87804; 93005; 94618; 96374; 99285; A9270; J0456; J0696; J1100; J1650; J7030; J8540; Q9967

== ENCOUNTER 2020-11-06 18:36 | Inpatient (IN) | payer BC, SELFPAY ==
--- NOTE | ~2020-11-06 | US_ITS ---
EXAMINATION: US venous doppler [facility] DATE: 11/07/2020 09:35 INDICATION: Shortness of breath TECHNIQUE: Smith scale images without and with compression and Doppler images of the bilateral lower e xtremity veins were obtained. COMPARISON: None FINDINGS: The right common femoral vein, profunda femoral vein, femoral vein, popliteal vein, peroneal trunk, p osterior tibial veins, and greater saphenous vein are patent. The left common femoral vein, profunda femoral vein, femoral vein, popliteal vein, peroneal trunk, po sterior tibial veins, and greater saphenous vein are patent. IMPRESSION: 1. Patent bilateral lower extremity veins. No evidence of deep venous thrombosis. Reviewed, dictated and finalized at location B. IMPRESSION: 1. Patent bilateral lower extremity veins. No evidence of deep venous thrombosi s.
[2020-11-06 18:52] VITALS: BP 96/56; PULSE 79; RESP 22; TEMP 37.1; O2SAT 91
--- NOTE | 2020-11-06 18:53 | PM.IMHP ---
H&P: HPI History of Present Illness Date/Time: 11/06/20 18:53Thianupam is a 55-year-old male patient who was admitted to [facility] on 11/04 20 patient tells me that he was diagnosed with COVID-19 when he was tested on 10/27/2020. The patient stated that he started having symptoms approximately October 18 with flu-like symptoms. One of his coworkers informed that he had tested positive for COVID-19. Patient's also tested positive for COVID-19 on October 30. The patient has been getting the full treatment of REMdesivir and Decadron. He is also given guaifenesin. The patient had been on the [facility] at [facility]. The provider over at [facility] called the radio station audio engineer out of concern for patient's increased oxygen demand. It was decided that the patient should be transferred to [facility]. The patient had a CTA which was negative for PE. The patient stated he could not tolerate laying on his belly. Chest x-ray from today shows diffuse lung disease with interval worsening consistent with pulmonary no edema consistent with pneumonia and or acute respiratory distress syndrome ARDS. H&H is 12.5 and 38.1. PH 7.45 on arterial blood gases. PO2 65.0. O2 saturation 93.7. Patient is being admitted to inpatient services on the date of service 11/06/2020. Chief Complaint: Shortness of breath. Review of Systems Review of Systems: All systems reviewed & are unremarkable except as noted in HPI and below Constitutional: Constitutional: Reports as per HPI and Reports no additional constitutional complaints Eyes: Eyes: Reports as per HPI and Reports no additional eye complaints ENT: Reports system reviewed and no additional complaints, except as documented and Reports Normal hearing present Cardiovascular: Cardiovascular: Reports no additional cardiovascular complaints Respiratory: Respiratory: Reports no additional respiratory complaints and Reports no additional respiratory complaints Gastrointestinal: Gastrointestinal: Reports as per HPI and Reports no additional gastrointestinal complaints Musculoskeletal: Musculoskeletal: Reports no additional musculoskeletal complaints Integumentary/Breasts: Skin/Breast: Reports system reviewed and no additional complaints, except as docu and Reports as per HPI Neurologic: Reports system reviewed and no additional complaints, except as documented, Reports as per HPI and Reports Normal hearing present Psychiatric: Psychiatric: Reports no additional psychiatric complaints and Reports as per HPI Endocrine: Endocrine: Reports no additional endocrine complaints Hematologic/Lymphatic: Hematologic/Lymphatic: Reports no additional hematologic/lymphatic complaints Allergic/Immunologic: Allergic/Immunologic: Reports no additional allergic/immunologic complaints PMFSH Past Medical History Medical History Acute medial meniscus tear of right knee Benign essential hypertension Obesity (BMI 30.0-34.9) Posterior tibial tendon dysfunction (PTTD) of right lower extremity Tobacco smoker, 20 cigarettes or fewer per day Surgical History Surgical History History of carpal tunnel surgery of left wrist Family History Family History Father Diabetes mellitus Skin cancer Mother Fibromyalgia Other Arthritis Social History Social History Smoking packs per day: 0.5 Smoking cigarettes per day: 10.0 Smoking status: Former smoker Tobacco type: cigarettes Second hand tobacco smoke exposure: No Additional smoking assessment comments: Quit 2013. 15 pack-year history Alcohol intake: current Alcohol use details: 2 per month Substance use: unknown Substance use type: does not use Additional living arrangements comments: . 3 Children. Additional occupation
[2020-11-06 19:37] LABS: Basophils Absolute Auto 0.1 K/mm3 (0.0-0.1); Basophils Percent Auto 0.6 % (0.2-1.2); Eosinophils Percent Auto 0.1 % (0-4.4); Hematocrit 45.3 % (42.0-52.0); Hemoglobin 14.6 g/dL (14.0-18.0); Immature Granulocyte Percent A 4.9 % (0-0.5); Lymphocytes Percent Auto 5.9 % (18.3-44.2); Mean Corpuscular HGB Conc 32.2 g/dl (32-36); Mean Corpuscular Hemoglobin 28.2 pg (26-34); Mean Corpuscular Volume 87.6 fl (80-100); Mean Platelet Volume 9.8 fl (7.4-10.4); Monocytes Absolute Auto 0.5 K/mm3 (0.1-0.6); Monocytes Percent Auto 5.3 % (2.6-8.5); Neutrophils Absolute Auto 8.4 K/mm3 (1.3-6.7); Neutrophils Percent Auto 83.2 % (45.5-73.1); Platelet Count Result 424 k/mm3 (150-375); Red Blood Count 5.17 M/mm3 (4.6-6.20); Red Cell Distribution Width 13.3 % (11.5-14.5); White Blood Count 10.1 K/mm3 (4.5-10.0)
[2020-11-06 19:46] LABS: Prothrombin Time 13.5 Seconds (11.1-14.7)
[2020-11-06 19:48] LABS: Alanine Aminotransferase 51 U/L (4-50); Estimated Glomerular Filt Rate > 60; Magnesium 2.1 mg/dL (1.6-2.3)
[2020-11-06 19:54] VITALS: BMI 33.5
[2020-11-06 20:00] VITALS: BP 107/72; PULSE 77; PULSE 88; RESP 20; TEMP 37.2; O2SAT 92; O2SAT 93
--- NOTE | 2020-11-06 20:58 | ADMGEN ---
This patient, Rashi Lugo, was admitted to IMU Room 207-01 on 11/06/20 at approximately 1800. Patient/family oriented to hospital policies and general routines including ID bracelet, bed and alarms, visiting hours, pain management, procedures, bathroom and other care routines, personal items, smoking policy, room service/diet, and visiting hours. Information on how to activate the Rapid Response Team has been discussed. Patient/Family are encouraged to report perceived risks to care and to ask questions if they do not understand what they are told or what they should do.
[2020-11-06] MEDS: ALBUTEROL SULFATE (*SP) AEROSOL 1 PUFF 2 PUFF INHALATION (21:27)
[2020-11-06 21:28] VITALS: PULSE 88
[2020-11-06 22:00] VITALS: PULSE 84
[2020-11-06] MEDS: REMDESIVIR 100 MG/NS 250 ML 100 MG/250 ML BAG 250 MG IVPB (23:01)
[2020-11-06 23:33] LABS: Add Urine Microscopic? NO; Appearance Urine Clear (Clear); Bilirubin Urine Negative (Negative); Blood Urine Negative (Negative); Color Urine Yellow (Yellow); Glucose Urine UA Negative (Negative); Ketones Urine Negative (Negative); Leukocyte Esterase Ur Negative LEU/UL (Negative); Nitrate Urine Negative (Negative); Protein Urine Negative (Negative); Specific Grav Ur 1.023 (1.001-1.035); Urobilinogen Urine Negative mg/dL (<2.0)
[2020-11-07] VITALS (20 sets, daily range): BP systolic 105–143; BP diastolic 56–84; PULSE 60–119; RESP 12–22; TEMP 35.9–37; O2SAT 90–97
[2020-11-07] MEDS: ALBUTEROL SULFATE (*SP) AEROSOL 1 PUFF 2 PUFF INHALATION (02:48)
[2020-11-07 04:39] LABS: Basophils Absolute Auto 0.1 K/mm3 (0.0-0.1); Basophils Percent Auto 0.5 % (0.2-1.2); Eosinophils Absolute Auto 0.1 K/mm3 (0-0.3); Eosinophils Percent Auto 0.7 % (0-4.4); Hematocrit 42.5 % (42.0-52.0); Hemoglobin 13.5 g/dL (14.0-18.0); Immature Granulocyte Absolute 0.53 K/mm3 (0.00-0.031); Immature Granulocyte Percent A 5.7 % (0-0.5); Lymphocytes Absolute Auto 1.04 K/mm3 (0.9-3.2); Lymphocytes Percent Auto 11.1 % (18.3-44.2); Mean Corpuscular HGB Conc 31.8 g/dl (32-36); Mean Corpuscular Hemoglobin 28.3 pg (26-34); Mean Corpuscular Volume 89.1 fl (80-100); Mean Platelet Volume 9.7 fl (7.4-10.4); Monocytes Absolute Auto 0.9 K/mm3 (0.1-0.6); Monocytes Percent Auto 9.5 % (2.6-8.5); Neutrophils Absolute Auto 6.8 K/mm3 (1.3-6.7); Neutrophils Percent Auto 72.5 % (45.5-73.1); Platelet Count Result 352 k/mm3 (150-375); Red Blood Count 4.77 M/mm3 (4.6-6.20); Red Cell Distribution Width 13.4 % (11.5-14.5); White Blood Count 9.4 K/mm3 (4.5-10.0)
[2020-11-07 04:56] LABS: INR 1.1; Prothrombin Time 14.2 Seconds (11.1-14.7)
[2020-11-07 05:18] LABS: Lactic Acid Reflex 0.7 mmol/L (0.7-2.1)
[2020-11-07 08:34] LABS: Alanine Aminotransferase 44 U/L (4-50); Albumin Level 3.5 g/dL (3.5-5.1); Alkaline Phosphatase 54 U/L (38-126); Anion Gap 7 mmol/L (8-16); Aspartate Amino Transferase 42 U/L (17-59); Bilirubin,Total 0.7 mg/dL (0.2-1.3); Blood Urea Nitrogen 28 mg/dL (9-20); Calcium 8.8 mg/dL (8.4-10.2); Carbon Dioxide 28 mmol/L (22-30); Chloride 98 mmol/L (98-107); Estimated CRCL calculation 82 ml/min; Estimated Glomerular Filt Rate > 60; Glucose 95 mg/dL (65-110); Lactate Dehydrogenase 634 U/L (313-618); Lipase 244 U/L (23-300); Magnesium 2.2 mg/dL (1.6-2.3); Potassium 4.3 mmol/L (3.4-5.0); Sodium 133 mmol/L (137-145)
[2020-11-07] MEDS: ALBUTEROL SULFATE (*SP) INHALER 2 PUFF INHALATION (08:57)
[2020-11-07] MEDS: BUDESONIDE/FORMOTEROL (*SP) 160-4.5 MCG 6 GM INH 2 PUFF INHALATION (08:57)
[2020-11-07] MEDS: ENOXAPARIN 40 MG/0.4 ML SYRINGE SUB-Q ×2 (09:34→20:06)
[2020-11-07] MEDS: DEXAMETHASONE 2 MG TABLET 6 MG PO (09:35)
--- NOTE | 2020-11-07 12:01 | PM.CNPUL ---
Assessment and Plan Assessment and plan (1) Pneumonia due to 2019 novel coronavirus: Code(s): U07.1 - COVID-19; J12.82 - Pneumonia due to coronavirus disease 2019 Status: Acute Assessment and Plan: Patient tested positive for COVID-19 on 10/30 and started on remdesivir and dexamethasone. Convalescent plasma given 11/07. Emperically started on ceftriaxone and azithromycin. - Remdesivir for 10 days, unless he should recover and tolerate room air with rest, ambulation and while sleeping. - Dexamethasone 6 mg PO for 10 days - Continuous pulse oximetry - Prone positioning as tolerated. - Avoid any fluid overload. - emperic azihtromycin and ceftraixone for CAP. DC after blood cultures negative for 48 hours. - Patient states he feels no improvement with inhalers and I will discontinue at this time. 11/07 patient on 4 L with saturations 93%. Goal saturations are 90-94% and will utilize nasal cannula oxygen to achieve this. Patient may require high-flow oxygen, BiPAP, or mechanical ventilation. I discussed level of resuscitation with patient and he wishes to be full code including mechanical ventilation if he should need it at this time. Patient should have home O2 assessment an overnight oximetry prior to discharge to determine his oxygen needs. Patient should have chest x-ray prior to discharge to serve as a new baseline. Discussed with Dr. Alvarado, will sign off, please call with additional questions. (2) Acute respiratory failure with hypoxia: Code(s): J96.01 - Acute respiratory failure with hypoxia Status: Acute Assessment and Plan: Etiology of hypoxic respiratory failure is COVID pneumonia. 11/05 08:00 5L with sats 95% 11/06 08:00 6 L with sats 94% 11/07 11:30 4 L with sats 93%. Wean as toelrated to goal sats 90-94%. History of Present Illness History of Present Illness Consult date: 11/07/20 Requesting physician: Gail Alvarado MD Reason for consult: pneumonia Chief complaint: COVID Pneumonia Narrative: This is a new pulmonary consult for COVID pneumonia with hypoxemic respiratory failure 55-year-old with a history of hypertension. Patient developed URI symptoms and headache on 10/27/2020. Patient tested positive for COVID on 10/30/2020. Patient saw [facility] outpatient primary physician on 11/01 and at that time he refused hospitalization and had a chest x-ray that demonstrated patchy bilateral infiltrates. Patient's symptoms continued to worsen and on 11/03 he presented to the emergency department at an outside hospital with a chest x-ray that showed increasing bilateral infiltrates, a 2 L blood gas with a pH of 7.41/48/52 and a D-dimer that was elevated. CT angiogram was negative for PE but had bilateral multifocal ground-glass interstitial and alveolar infiltrates consistent with COVID pneumonia. Patient was started on REM de severe and dexamethasone. Patient continued to have shortness of breath and on 11/05 he required 5 L nasal cannula oxygen with saturations 95%. On 11/06 patient had chest x-ray with increasing bilateral interstitial alveolar infiltrates and a blood gas on 4 L with a pH of 7.45/38/65. Patient was transferred to [facility] on 11/06. Patient was given convalescent plasma on 11/06. 11/07 Today patient tells me that he is feeling improved. He feels like he can't take a deeper breath. His phlegm is now clear where as before it was vargas. Patient states he is 20% better. There is no complaints of hemoptysis at this time. Patient is currently on 4 L nasal cannula with saturations 93%. Review of Systems Review of Systems: All systems reviewed & are unremarkable except as noted in HPI and below Eyes: Eyes: Reports no additional eye complaints ENT: Reports system reviewed and no additional complaints, except as documented Cardiovascular: Cardiovascular: Reports no additional cardiovascular complaints Respiratory: Respiratory: Reports no additional respirat
--- NOTE | 2020-11-07 16:26 | PM.IMPN ---
Progress Note: A&P Assessment and Plan (1) Pneumonia due to 2019 novel coronavirus: Code(s): U07.1 - COVID-19; J12.82 - Pneumonia due to coronavirus disease 2019 Status: Acute Assessment and Plan: 11/07/20 16:26 patient is a 55-year-old male developed on October 18 and was tested on October 27 and was positive, 1 of his coworkers was positive as well as his , initially patient was seen with started on community was started on dexamethasone and Remdesivir however patient was requiring high-flow oxygen and was transferred to the hospital, today patient was seen by pulmonology and we discussed, patient was given convalescent plasma, barrel rifler button recommended to continue dexamethasone and Remdesivir for total of 10 days, patient states since his arrival at the hospital receiving dexamethasone he is feeling much better not a short of breath. currently patient is required 6 L of oxygen nasal cannula, he has not had any fever, there is also concern patient may have community-acquired pneumonia and treated with ceftriaxone and azithromycin, will monitor with the blood cultures on a will stop antibiotic, once clinically stable will have a PT OT evaluate the, patient is encouraged to sleep on and off prone position. (2) Elevated d-dimer: Code(s): R79.89 - Other specified abnormal findings of blood chemistry Status: Acute Assessment and Plan: CTA of the chest negative for pulmonary emboli however it does show COVID like pneumonia (3) Benign essential hypertension: Code(s): I10 - Essential (primary) hypertension Status: Acute Assessment and Plan: continue home regimen (4) Acute kidney injury: Code(s): N17.9 - Acute kidney failure, unspecified Status: Acute Assessment and Plan: most likely secondary to dehydration and poor p.o. intake will encourage patient oral fluid intake Subjective Date/time seen: 11/07/20 16:26 patient is a 55-year-old male developed on October 18 and was tested on October 27 and was positive, 1 of his coworkers was positive as well as his , initially patient was seen with started on community was started on dexamethasone and Remdesivir however patient was requiring high-flow oxygen and was transferred to the hospital, today patient was seen by pulmonology and we discussed, patient was given convalescent plasma, barrel rifler button recommended to continue dexamethasone and Remdesivir for total of 10 days, patient states since his arrival at the hospital receiving dexamethasone he is feeling much better not a short of breath. currently patient is required 6 L of oxygen nasal cannula, he has not had any fever, there is also concern patient may have community-acquired pneumonia and treated with ceftriaxone and azithromycin, will monitor with the blood cultures on a will stop antibiotic, once clinically stable will have a PT OT evaluate the, patient is encouraged to sleep on and off prone position. Review of Systems Review of Systems: All systems reviewed & are unremarkable except as noted in HPI and below Exam Narrative: Exam Narrative: moderately obese Patient is comfortable, NAD HEENT: eyes are clear and none icteric LUNGS: respiratory effort are normal ABD: distended Lower extremities: no edema SKIN: nonjaundiced Neuro: grossly intact and normal speech. Objective Data Vital Signs Vital Signs: Vital Signs - 24 hr 11/06/20 18:52 11/06/20 20:00 11/06/20 21:28 Temperature 98.8 F 98.9 F Pulse Rate 79 77 88 Respiratory Rate 22 H 20 Blood Pressure 96/56 L 107/72 Pulse Oximetry 91 93 11/06/20 22:00 11/07/20 00:00 11/07/20 02:00 Temperature 97.6 F Pulse Rate 84 65 69 Respiratory Rate 20 Blood Pressure 113/56 L Pulse Oximetry 90 11/07/20 02:49 11/07/20 04:00 11/07/20 05:33 Temperature 97.2 F L 97.2 F L Pulse Rate 63 68 72 Respiratory Rate 20 20 Blood Pressure 111/67 105/62 Pulse Oximetry 92 90 11/07/20 05:48
[2020-11-07] MEDS: REMDESIVIR 100 MG/NS 250 ML 100 MG/250 ML BAG 250 MG IVPB (21:45)
[2020-11-08] VITALS (15 sets, daily range): BP systolic 116–143; BP diastolic 59–83; PULSE 57–93; RESP 14–20; TEMP 36.3–36.9; O2SAT 92–99
[2020-11-08 05:59] LABS: INR 1.1
[2020-11-08 06:01] LABS: Alanine Aminotransferase 34 U/L (4-50); Estimated CRCL calculation 82 ml/min; Estimated Glomerular Filt Rate > 60
[2020-11-08] MEDS: ENOXAPARIN 40 MG/0.4 ML SYRINGE SUB-Q ×2 (08:29→20:39)
[2020-11-08] MEDS: DEXAMETHASONE 2 MG TABLET 6 MG PO (08:29)
--- NOTE | 2020-11-08 16:43 | PM.IMPN ---
Progress Note: A&P Assessment and Plan (1) Pneumonia due to 2019 novel coronavirus: Code(s): U07.1 - COVID-19; J12.82 - Pneumonia due to coronavirus disease 2019 Status: Acute Assessment and Plan: 11/08/20 16:43 11/07patient is a 55-year-old male developed on October 18 and was tested on October 27 and was positive, 1 of his coworkers was positive as well as his , initially patient was seen with started on community was started on dexamethasone and Remdesivir however patient was requiring high-flow oxygen and was transferred to the hospital, today patient was seen by pulmonology and we discussed, patient was given convalescent plasma, aircraft systems technician recommended to continue dexamethasone and Remdesivir for total of 10 days, patient states since his arrival at the hospital receiving dexamethasone he is feeling much better not a short of breath. currently patient is required 6 L of oxygen nasal cannula, he has not had any fever, there is also concern patient may have community-acquired pneumonia and treated with ceftriaxone and azithromycin, will monitor with the blood cultures on a will stop antibiotic, once clinically stable will have a PT OT evaluate the, patient is encouraged to sleep on and off prone position. 11/08 patient clinically symptoms have improved is requiring only 2 L oxygen denies any fever or chills, states feeling much not a short of breath, will continue present management, and there is no growth blood culture will stop the Rocephin and azithromycin tomorrow. dexamethasone 2/10 and Remdesivir 2/5 (2) Elevated d-dimer: Code(s): R79.89 - Other specified abnormal findings of blood chemistry Status: Acute Assessment and Plan: CTA of the chest negative for pulmonary emboli however it does show COVID like pneumonia (3) Benign essential hypertension: Code(s): I10 - Essential (primary) hypertension Status: Acute Assessment and Plan: continue home regimen (4) Acute kidney injury: Code(s): N17.9 - Acute kidney failure, unspecified Status: Acute Assessment and Plan: most likely secondary to dehydration and poor p.o. intake will encourage patient oral fluid intake Subjective Date/time seen: 11/08/20 16:43 11/07patient is a 55-year-old male developed on October 18 and was tested on October 27 and was positive, 1 of his coworkers was positive as well as his , initially patient was seen with started on community was started on dexamethasone and Remdesivir however patient was requiring high-flow oxygen and was transferred to the hospital, today patient was seen by pulmonology and we discussed, patient was given convalescent plasma, aircraft systems technician recommended to continue dexamethasone and Remdesivir for total of 10 days, patient states since his arrival at the hospital receiving dexamethasone he is feeling much better not a short of breath. currently patient is required 6 L of oxygen nasal cannula, he has not had any fever, there is also concern patient may have community-acquired pneumonia and treated with ceftriaxone and azithromycin, will monitor with the blood cultures on a will stop antibiotic, once clinically stable will have a PT OT evaluate the, patient is encouraged to sleep on and off prone position. 11/08 patient clinically symptoms have improved is requiring only 2 L oxygen denies any fever or chills, states feeling much not a short of breath, will continue present management, and there is no growth blood culture will stop the Rocephin and azithromycin tomorrow. dexamethasone 2/10 and Remdesivir 2/5 Review of Systems Review of Systems: All systems reviewed & are unremarkable except as noted in HPI and below Exam Narrative: Exam Narrative: moderately obese Patient is comfortable, NAD HEENT: eyes are clear and none icteric LUNGS: respiratory effort are normal ABD: distended Lower extremities: no edema SKIN: nonjaundiced Neuro: grossly intac
[2020-11-09] VITALS (8 sets, daily range): BP systolic 116–118; BP diastolic 64–74; PULSE 54–100; RESP 20; TEMP 36.6–37.1; O2SAT 92–97
[2020-11-09 05:26] LABS: Alanine Aminotransferase 29 U/L (4-50); Estimated CRCL calculation 90 ml/min; Estimated Glomerular Filt Rate > 60
[2020-11-09 05:29] LABS: INR 1.1; Prothrombin Time 14.3 Seconds (11.1-14.7)
[2020-11-09] MEDS: DEXAMETHASONE 2 MG TABLET 6 MG PO (08:24)
[2020-11-09] MEDS: ENOXAPARIN 40 MG/0.4 ML SYRINGE SUB-Q (08:24)
--- NOTE | 2020-11-09 13:53 | HOMEO2EVAL ---
Evaluation was performed at [facility] Home Oxygen Evaluation RC: Home Oxygen (O2) Evaluation Start: 11/09/20 10:01 Freq: ONCE Status: Active Protocol: RPE Activity Type Activity Date Activity User E-Sign Co-Sign Detail Recorded Client Recorded Date Recorded By Document 11/09/20 12:30 YUDY [email or web address] 11/09/20 13:53 YUDY Document 11/09/20 12:35 YUDY [email or web address] 11/09/20 13:53 YUDY Document 11/09/20 12:40 YUDY [email or web address] 11/09/20 13:53 YUDY 11/09/20 11/09/20 11/09/20 12:30 12:35 12:40 Home O2 Evaluation Test Phase Resting Exercise Resting Oxygen Delivery Room Air Room Air Room Air Pulse Oximetry (90-100 %) 95 92 95 Home Oxygen Evaluation Comments PT UP WALKING IN ROOM. NO HOME O2 NEEDED AT THIS TIME. Treatment Charges O2 Evaluation - Inpatient
--- NOTE | 2020-11-09 13:53 | PCRCNOTE ---
HOME O2 EVAL DONE, NO HOME O2 NEEDED AT THIS TIME. DEMETRIA BARNETT.
--- NOTE | 2020-11-09 14:10 | PM.DS ---
DS: Admitting Diagnosis Admitting Diagnosis Admitting Diagnosis: Chief Complaint: Shortness of breath. DS: Discharge Diagnosis Discharge Diagnosis (1) Pneumonia due to 2019 novel coronavirus: Code(s): U07.1 - COVID-19; J12.82 - Pneumonia due to coronavirus disease 2019 Status: Acute Assessment and Plan: 11/08/20 16:43 11/07patient is a 55-year-old male developed on October 18 and was tested on October 27 and was positive, 1 of his coworkers was positive as well as his , initially patient was seen with started on community was started on dexamethasone and Remdesivir however patient was requiring high-flow oxygen and was transferred to the hospital, today patient was seen by pulmonology and we discussed, patient was given convalescent plasma, materials engineer recommended to continue dexamethasone and Remdesivir for total of 10 days, patient states since his arrival at the hospital receiving dexamethasone he is feeling much better not a short of breath. currently patient is required 6 L of oxygen nasal cannula, he has not had any fever, there is also concern patient may have community-acquired pneumonia and treated with ceftriaxone and azithromycin, will monitor with the blood cultures on a will stop antibiotic, once clinically stable will have a PT OT evaluate the, patient is encouraged to sleep on and off prone position. 11/08 patient clinically symptoms have improved is requiring only 2 L oxygen denies any fever or chills, states feeling much not a short of breath, will continue present management, and there is no growth blood culture will stop the Rocephin and azithromycin tomorrow. dexamethasone 2/10 and Remdesivir 2/5 (2) Elevated d-dimer: Code(s): R79.89 - Other specified abnormal findings of blood chemistry Status: Acute Assessment and Plan: CTA of the chest negative for pulmonary emboli however it does show COVID like pneumonia (3) Benign essential hypertension: Code(s): I10 - Essential (primary) hypertension Status: Acute Assessment and Plan: continue home regimen (4) Acute kidney injury: Code(s): N17.9 - Acute kidney failure, unspecified Status: Acute Assessment and Plan: most likely secondary to dehydration and poor p.o. intake will encourage patient oral fluid intake DS: Summary Hospital Course Reason for hospitalization: This is a 55-year-old male patient who was admitted to [facility] on 11/04 20 patient tells me that he was diagnosed with COVID-19 when he was tested on 10/27/2020. The patient stated that he started having symptoms approximately October 18 with flu-like symptoms. One of his coworkers informed that he had tested positive for COVID-19. Patient's also tested positive for COVID-19 on October 30. The patient has been getting the full treatment of REMdesivir and Decadron. He is also given guaifenesin. The patient had been on the [facility] at [facility]. The provider over at [facility] called the materials engineer out of concern for patient's increased oxygen demand. It was decided that the patient should be transferred to [facility]. The patient had a CTA which was negative for PE. The patient stated he could not tolerate laying on his belly. Chest x-ray from today shows diffuse lung disease with interval worsening consistent with pulmonary no edema consistent with pneumonia and or acute respiratory distress syndrome ARDS. H&H is 12.5 and 38.1. PH 7.45 on arterial blood gases. PO2 65.0. O2 saturation 93.7. Patient is being admitted to inpatient services on the date of service 11/06/2020. Chief Complaint: Shortness of breath. Hospital Course: 11/07patient is a 55-year-old male developed on October 18 and was tested on October 27 and was positive, 1 of his coworkers was positive as well as his , initially patient was seen with started on community was started on dexamethasone and Remdesivir however patient
== END 2020-11-09 17:02 | disposition home or self-care (01) | DRG 177 ==
PROVIDERS: Nurse Practitioner; Admitting Provider Internal Medicine; PCP Family Medicine; Visit Provider Internal Medicine
DX: U07.1 COVID-19 (principal); J12.82 Pneumonia due to coronavirus disease 2019; N17.9 Acute kidney failure, unspecified; I10 Essential (primary) hypertension; E86.0 Dehydration; E66.9 Obesity, unspecified; Z68.33 Body mass index [BMI] 33.0-33.9, adult; Z87.891 Personal history of nicotine dependence
CPT/HCPCS: 36415; 36430; 80053; 81003; 82565; 83605; 83615; 83690; 83735; 84460; 85025; 85610; 86900; 86901; 87040; 93970; 94618; 94640; A9270; J0456; J0696; J1650; J8540; P9059

== ENCOUNTER 2021-10-31 12:52 | Outpatient (CLI) | payer BC, SELFPAY ==
[2021-10-31 13:08] LABS: Hematocrit 50.6 % (40.0-54.0); Hemoglobin 16.4 g/dL (14.0-18.0); Mean Corpuscular HGB Conc 32.4 g/dL (32.0-36.0); Mean Corpuscular Hemoglobin 28.5 pg (27.0-31.0); Mean Corpuscular Volume 87.8 fL (78.0-102.0); Mean Platelet Volume 10.3 fl (8.7-11.0); Platelet Count Result 210 K/mm3 (150-420); Red Blood Count 5.76 M/mm3 (4.70-6.10); Red Cell Distribution Width 14.3 % (11.6-14.4); White Blood Count 5.9 K/mm3 (4.8-10.8)
[2021-10-31 14:16] LABS: Alanine Aminotransferase 30 U/L (16-63); Alkaline Phosphatase 67 U/L (46-116); Anion Gap 9 mmol/L (8-16); Aspartate Amino Transferase 17 U/L (15-37); Bilirubin,Total 0.6 mg/dL (0.00-1.00); Blood Urea Nitrogen 17 mg/dL (7-18); Calcium 9.2 mg/dL (8.5-10.1); Carbon Dioxide 27 mmol/L (21-32); Chloride 102 mmol/L (98-108); Cholesterol 196 mg/dL (0-200); Estimated Glomerular Filt Rate 56; Glucose 95 mg/dL (70-99); HDL Direct 34 mg/dL (40-60); LDL Cholesterol Calculated 123 mg/dL (<130); Osmolality Calculated 287 mOsm/kg (285-295); Potassium 3.8 mmol/L (3.5-5.1); Sodium 138 mmol/L (136-145); Total Protein 7.7 g/dL (6.4-8.2); Triglycerides 195 mg/dL (0-150)
== END 2021-10-31 12:53 | disposition home or self-care (01) ==
LOC: CHSLAB 12:55
PROVIDERS: PCP Family Medicine; Visit Provider Family Medicine
DX: I10 Essential (primary) hypertension (principal)
CPT/HCPCS: 36415; 80053; 80061; 85027